=== PATIENT | female | born 1945 | race Caucasian/White ===

== ENCOUNTER → 2016-11-06 | Outpatient (CLI) | payer OTHER, MEDICARE ==
[~2016-11-06] MED LIST: APAP500 PO; BENADRYL25 MG PO; BENICAR20 MG PO; CALTRATE-600 W1 EACH PO; CLARITIN10 M2 PO; DESYREL50 MG PO; DYAZIDE 37.5-21 EACH PO; FENOFIBRATE134 MG PO; FISH OIL 1,0001 EAC5 PO; FOLIC ACID1 MG PO; FOSAMAX 70 MG T70 M1 PO; HYDROXYCHLOROQ200 M1 PO; IRON 65 MG PO; IRON PO; IRON159 MG PO; LIPITOR 10 MG10 M1 PO; MELATONIN3 MG PO; METHOTREXATE 22.5 MG PO; MULTIVITAMINS PO; NEURONTIN 300300 M1 PO; NITROFURANTOIN100 MG PO; NORWEGIAN COD1 EACH PO; PREDNISONE 5 MG5 M1 PO; PREMARIN VAGI42.5 G1 VAG; PREVACID PO; PRILOSEC 20 MG20 MG PO; REMICADE 1100 MG/VIA IV; SIMVASTATIN40 MG PO; SYNTHROID88 MCG PO; TYLENOL EX-STR500 M2 PO; ULTRAM 50MG TAB50 MG PO; VALERIAN ROOT100 MG PO; VITAMINC500 PO; VITAMINS A-D-E1 EACH PO; [UNRECOGNIZED DRUG - OTHER] PO
== END ==
LOC: RAD 14:14
DX: Z12.31 Encounter for screening mammogram for malignant neoplasm of breast (principal)

== ENCOUNTER → 2017-11-29 | Outpatient (CLI) | payer OTHER, MEDICARE | LOC: RAD 14:02 | DX: Z12.31 Encounter for screening mammogram for malignant neoplasm of breast (principal); I10 Essential (primary) hypertension ==

== ENCOUNTER → 2019-01-15 | Outpatient (CLI) | payer OTHER, MEDICARE | LOC: RAD 14:07 | DX: Z12.31 Encounter for screening mammogram for malignant neoplasm of breast (principal) ==

== ENCOUNTER → 2020-05-04 | Outpatient (CLI) | payer OTHER, MEDICARE ==
[~2020-05-04] MED LIST changes: +ACETAMINOPHEN500 MG PO; +ACETAMINOPHEN650 M1 PO; +AMITRIPTYLINE H25 M2 PO; +CATAPRES0.2 MG PO; +CIMZIA400 MG/2 M SUBQ; +ESTRADIOL42.5 GM TOP; +IRBESARTAN300 MG PO; +METHADONE HCL 110 M1 PO; +NEXIUM 24HR20 M2 PO; +PRAVACHOL 20 MG20 M1 PO; +VITAMIN D325 MC3 PO
== END ==
LOC: LAB 14:56
PROVIDERS: ATTEND Orthopaedic Surgery Hand Surgery
DX: Z01.812 Encounter for preprocedural laboratory examination (principal); Z20.828 Contact with and (suspected) exposure to other viral communicable diseases

== ENCOUNTER 2020-05-05 13:30 | Day surgery (SDC) | payer OTHER, MEDICARE ==
[~2020-05-05] VITALS: Ht 149.9 cm; Wt 56.7 kg
[2020-05-05 14:01] LABS: HEMATOCRIT 38.7 % (37.0-47.0); HEMOGLOBIN 12.8 gm/dL (12.0-15.0); MCH 32.6 pg (26.0-34.0); MCV 98.9 fL (80.0-100.0); RBC 3.92 mil/uL (4.20-5.00); RDW 12.7 % (10.5-14.5); WBC 8.9 thou/uL (4.0-11.0)
[2020-05-05 14:08] LABS: CALCIUM 9.1 mg/dL (8.5-10.1); CREATININE 1.2 mg/dL (0.6-1.0); POTASSIUM 4.1 mmol/L (3.5-5.1)
[2020-05-05 14:34] VITALS: BP 120/75
--- NOTE | 2020-05-05 15:36 | EKG ---
[facility] [address] [facility] [place] [address] ELECTROCARDIOGRAM REPORT Name: TEJAS FUENTES Room #: [address] [place] [address] M.R.#: [id number] Admission: 05/05/20 Attend Phys: Adriana Peters, Discharge: Date of : 43 Report #: [id number] THIS REPORT FOR: cc: Damion Gagnon MD, Eric K. MD Santiago, Patrick MD [facility] ~ THIS REPORT FOR: //name// [facility] Test Date: 2020-05-05 Test Time: 14:09:27 Pat Name: TEJAS FUENTES Department: Room: 150 1 Gender: F Assisted Living Assistant: ANA : 1945 Requested By: Adriana Peters Order Number: [id number] MD: Hu Viramontes Measurements Intervals [place] Rate: 74 P: 55 CA: 172 QRS: -8 QRSD: 122 T: 37 QT: 444 QTc: 493 Interpretive Statements Sinus rhythm Right bundle branch block Compared to ECG 05/08/2017 12:55:30 Right bundle-branch block now present ST (T wave) deviation now present Possible ischemia no longer present Electronically Signed On 05-05-2020 15:36:21 FINANCIAL REP by Hu Viraomntes [email or web address] <ELECTRONICALLY SIGNED> By: Hu Viramontes MD, FACC 05/05/20 1536 1409 [id number] Hu Viramontes MD, FAC /EPI
[2020-05-05 18:27] VITALS: BP 120/75
--- NOTE | 2020-05-19 15:14 | O ---
[facility] [place] [address] [address] OPERATIVE REPORT Name: TEJAS FUENTES Room #: [facility]..#: [id number] Admission: 05/05/20 Attend Phys: Adriana Peters, Discharge: 05/05/20 Date of : 43 Report #: [id number] THIS REPORT FOR: cc: Damion Gagnon MD, Eric K. MD Deardorff,Adriana Farias MD ~ CC: Damion Peters DATE OF SERVICE: 05/05/2020 PREOPERATIVE DIAGNOSIS: Right ring and small finger probable FDP tendon ruptures, flexor tenosynovitis and a bone spur on the volar wrist as well as extensor pollicis longus tenosynovitis. POSTOPERATIVE DIAGNOSES: Right multiple tendon ruptures including the juncture site of the previously repaired FDP ring and the FDP long finger and the FDS to the index finger with a volar bone spur and capsular rent and dorsal third compartment extensor tenosynovitis. PROCEDURE PERFORMED: 1. Right volar flexor tenosynovectomy. 2. Right flexor digitorum profundus tendon repair transfer of the long, ring and small to the long flexor digitorum superficialis side to side transfer. 3. Right volar osteophyte excision and capsular closure. 4. Right third compartment extensor tenosynovectomy. SURGEON: Adriana Peters MD. ANESTHESIA: General mask anesthesia. ESTIMATED BLOOD LOSS: Approximately 1 mL. TOURNIQUET TIME: Approximately 85 minutes. COMPLICATIONS: None. CONDITION: Stable. DISPOSITION: Recovery room. INDICATIONS: The patient is a 74-year-old female with the above-mentioned diagnosis. She elects for operative treatment. The risks, benefits, alternatives and complications were discussed including but not limited to infection, damage to vessels or nerves, tendon healing issues, stiffness. Informed consent was obtained. The correct extremity was identified and labeled [address] [address] OPERATIVE REPORT Name: TEJAS FUENTES Room #: DEP [facility].#: [id number] Admission: 05/05/20 Attend Phys: Adriana Peters, Discharge: 05/05/20 Date of : 43 Report #: [id number] by myself after verbal confirmation of the patient as well as visual confirmation and signed informed consent. DESCRIPTION OF PROCEDURE: The patient was brought to the operating room and placed on a supine position. She received preoperative antibiotics. Tourniquet was placed over padding on the patient's right upper extremity. The right upper extremity was sterilely prepped and draped in the usual fashion. Final timeout was taken to verify correct patient, operative procedure, operative site, all concurred. The arm was elevated, exsanguinated and tourniquet inflated. Next, approximately 5 cm incision was made over the previously made incision over the thumb EPL tendon. Dissection was carried down through subcutaneous tissue with tenotomy scissors. The third compartment was bulging. It was then incised and a copious amount of blood from the hematoma was evacuated. A tenosynovectomy was performed. Next, attention was placed to the volar side. The prior surgical incision measuring approximately 10-15 cm was utilized. This was ulnar to the course of median nerve. Dissection was carried down through subcutaneous tissue with tenotomy scissors proximally. The carpal tunnel was entered and a moderate amount of bloody fluid was expressed. Taking care to protect the median nerve, the incision was taken down all the way to the tendons. There was a white tissue material and frayed tendons. The FPL, FDP to the index and FDS to the long were the only tendons that remained intact. The FDS to the index was ruptured. The remaining tendons looked to be in good quality. The long, ring and small FDP tendon that had previously been sutured together remained together as a single mass, but it appeared that the FDP to the long had rupture. The superficial arch was identified and carefully protected. The distal tendons were mobilized. A single deep flexor tendon and single superficial flexor tendon was identified proximally. These did not have a significant amount of excursion. Next, the ulnar side of the wrist was evaluated. There was a large 1-1.5 cm rent in the capsule that seemed as white inflammatory tissue. This was debrided and a sharp osteophyte was debrided with a rongeur. The thick capsule was reapproximated with 4-0 Ethibond suture. Next, I felt suturing the long, ring and small FDP tendons to the long FDS tendon would provide more excursion than performing a graft, which may not have as much power due to the proximal nature of the graft. The gap measured approximately 8 cm. A [id number] repair of the previously sutured flexor tendon mass to the long finger, FDS tendon was performed with 4-0 Ethibond suture. This provided a nice return of an arcade to the digits and tenodesis showed good motion. The wounds were then all thoroughly irrigated. The skin was closed with 4-0 nylon suture. Subcutaneous tissue was infiltrated with approximately 5 mL of 0.25% Marcaine in divided doses. She was placed in a bulky dressing and a volar dorsal slab splint with the fingers and wrist in flexion. All fingers were pink with brisk capillary refill at the conclusion of case after deflation of tourniquet. All [facility] [address] [place] [address] OPERATIVE REPORT Name: TEJAS FUENTES Room #: DEP [facility] M.R.#: [id number] Admission: 05/05/20 Attend Phys: Adriana Peters, Discharge: 05/05/20 Date of : 43 Report #: [id number] sponge and needle counts were correct. The patient was transferred to postoperative recovery room in stable condition. <ELECTRONICALLY SIGNED> By: Adriana Peters MD 05/19/20 1514 1829 1847 Adriana Peters MD /nt
== END 2020-05-05 19:05 | disposition home or self-care (01) ==
LOC: OR → TBA 13:30 → OR 13:30 → TBA 13:32 → OR 14:23
PROVIDERS: ATTEND Orthopaedic Surgery Hand Surgery
DX: S66.116A Strain of flexor muscle, fascia and tendon of right little finger at wrist and hand level, initial encounter (principal); S66.114A Strain of flexor muscle, fascia and tendon of right ring finger at wrist and hand level, initial encounter; M25.731 Osteophyte, right wrist; M65.841 Other synovitis and tenosynovitis, right hand; I10 Essential (primary) hypertension; E78.00 Pure hypercholesterolemia, unspecified; D64.9 Anemia, unspecified; K21.9 Gastro-esophageal reflux disease without esophagitis; M06.9 Rheumatoid arthritis, unspecified; M85.80 Other specified disorders of bone density and structure, unspecified site; Z98.890 Other specified postprocedural states; Z79.899 Other long term (current) drug therapy; Z87.891 Personal history of nicotine dependence; Z96.652 Presence of left artificial knee joint; Z90.49 Acquired absence of other specified parts of digestive tract; Z90.710 Acquired absence of both cervix and uterus; X58.XXXA Exposure to other specified factors, initial encounter; Y93.89 Activity, other specified; Y92.89 Other specified places as the place of occurrence of the external cause; Y99.8 Other external cause status
CPT/HCPCS: 50010; 50101; 50386; 51736; 56525; 56526; 57006; 57091; 57178; 62110; 62900; 64039; 65060; 70005

== ENCOUNTER → 2020-09-05 | Outpatient (CLI) | payer OTHER, MEDICARE ==
[~2020-09-05] MED LIST changes: +ALTERIL PO; +LEVOTHYROXINE88 MCG PO
== END ==
LOC: LAB 11:05
PROVIDERS: ATTEND Orthopaedic Surgery Hand Surgery
DX: Z01.812 Encounter for preprocedural laboratory examination (principal); Z20.822 Contact with and (suspected) exposure to COVID-19

== ENCOUNTER 2020-09-08 08:54 | Day surgery (SDC) | payer OTHER, MEDICARE ==
[~2020-09-08] VITALS: Ht 149.9 cm; Wt 56.7 kg
--- NOTE | ~2020-09-08 | O ---
[facility] [place] [address] OPERATIVE REPORT Name: TEJAS FUENTES Room #: DEP [facility] M..#: [id number] Admission: 09/08/20 Attend Phys: Adriana Peters, Discharge: 09/08/20 Date of : 43 Report #: [id number] THIS REPORT FOR: cc: Damion Gagnon MD, Eric K. MD Deardorff,Adriana Farias MD ~ DATE OF SERVICE: 09/08/2020 PREOPERATIVE DIAGNOSIS: Right wrist severe arthrosis. POSTOPERATIVE DIAGNOSIS: Right wrist severe arthrosis. PROCEDURE PERFORMED: Right wrist fusion. SURGEON: Adriana Peters MD ANESTHESIA: General mask anesthesia. ESTIMATED BLOOD LOSS: Minimal. TOURNIQUET TIME: 80 minutes. IMPLANTS USED: Synthes radial fusion plate titanium. COMPLICATIONS: None. CONDITION: Stable. DISPOSITION: Recovery room. INDICATIONS: The patient is a 75-year-old female with the above-mentioned diagnosis. She elects for operative treatment. The risks, benefits, alternatives and complications were discussed including but not limited to infection, damage to vessels or nerves, incomplete relief or worsening of any symptoms, nonunion, malunion, hardware failure, hardware irritation, stiffness. We also discussed possible distal ulna hemiresection interposition arthroplasty. She is currently not having any significant symptoms and has excellent rotation. We elected to not perform this procedure unless I consider intraoperatively that changed my mind. Informed consent was obtained. The correct extremity was identified and labeled by myself after verbal with the patient as well as visual confirmation and signed informed consent. DESCRIPTION OF PROCEDURE: The patient was brought back to the operating room and placed on the operating table in a supine position. She received preoperative antibiotics. Tourniquet was applied to right lower extremity was [address] [address] OPERATIVE REPORT Name: ALFREDOTEJAS KALIA Room #: DEP [facility] M..#: [id number] Admission: 09/08/20 Attend Phys: Adriana Peters, Discharge: 09/08/20 Date of : 43 Report #: [id number] sterilely prepped and draped in the usual fashion. Final timeout was taken to verify correct patient, operative procedure, operative site, all concurred. The eschar was removed. The wound is completely healed and beneath it. At this point, the arm was then cleaned with chlorhexidine soap. A dorsal incision was made centered over Glendy's tubercle. Dissection was carried down through subcutaneous tissue with tenotomy scissors. Careful attention to avoid any damage to any tendons or sensory structures. The EPL tendon was released from its compartment and placed radially. Next, the capsule was entered. The second and fourth compartments were elevated off the radius. The carpus was severely destroyed, any cartilaginous tissue was excised. Next, the long finger CMC joint was debrided of any cartilage, any thickened synovium was debrided as well. Next, the x-ray was brought and the wrist was assessed in AP and lateral planes. I wanted to keep her wrist in slight extension as this was a more functional position for her and so a short Synthes titanium plate was chosen with a band. This was fairly large, so was felt to be of reasonable size. It was affixed to the metacarpal with a cortical screw distally and then 2 locking screw was placed into the capitate as well, this all had excellent fixation. Next, due to the patient's osteopenia, distal radius autograft was not used, DBX putty was used. It was placed into the fusion site including the CMC fusion site. Next, a cortical screw was placed into the radius in the mid portion. I was unable to compress it down to the bone nicely. At the last turn, it split. So, the fusion was maintained in some compression and extension and locking screws were placed. These had good bicortical fixation. There were no other fracture lines. The plate was noted to be prominent. The wound had previously been thoroughly irrigated prior to placing bone graft. The compartments were closed over the plate. Prior to doing this, 1 cm of the posterior interosseous nerve was transected at the base of the fourth compartment proximal to the wrist. The skin was then closed with 4-0 nylon suture. AP and lateral live fluoroscopic view showed good position of the fusion and the hardware. The DRUJ was stable. She had full rotation. The wound was infiltrated with approximately 5 mL of 0.25% Marcaine. She was placed in a bulky dressing and a volar dorsal slab splint. All fingers were pink with brisk capillary refill at the conclusion of case after deflation of tourniquet. All sponge and needle counts were correct. The patient was transferred to postoperative recovery room in stable condition. By: [id number] Adriana Peters MD /rachel
[2020-09-08 10:52] VITALS: BP 160/79
[2020-09-08 14:02] VITALS: BP 160/79
== END 2020-09-08 14:50 | disposition home or self-care (01) ==
LOC: OR 08:54 → TBA 08:54 → OR 13:34
PROVIDERS: ATTEND Orthopaedic Surgery Hand Surgery
DX: M19.031 Primary osteoarthritis, right wrist (principal); M25.531 Pain in right wrist; I10 Essential (primary) hypertension; M19.90 Unspecified osteoarthritis, unspecified site; E78.00 Pure hypercholesterolemia, unspecified; D64.9 Anemia, unspecified; K21.9 Gastro-esophageal reflux disease without esophagitis; M06.9 Rheumatoid arthritis, unspecified; M85.80 Other specified disorders of bone density and structure, unspecified site; Z98.890 Other specified postprocedural states; Z79.899 Other long term (current) drug therapy; Z87.891 Personal history of nicotine dependence; Z90.710 Acquired absence of both cervix and uterus; Z96.652 Presence of left artificial knee joint; Z98.42 Cataract extraction status, left eye
CPT/HCPCS: 50010; 50101; 50386; 51014; 56526; 57006; 57091; 57178; 58609; 58611; 58614; 58615; 58617; 58618; 58619; 58622; 58624; 62110; 62900; 64043; 65060; 70005